=== PATIENT | female | born 1990 | race Caucasian/White ===

== ENCOUNTER 2016-10-08 17:53 | Emergency (ER) | payer OTHER ==
[~2016-10-08] VITALS: Ht 154.9 cm; Wt 129.8 kg
[~2016-10-08 17:53] MED LIST: ENDOCET 5-3251 EACH PO; Motrin PO; NO MEDICATIONS
[2016-10-08 21:11] VITALS: BP 132/81
== END 2016-10-08 21:11 | disposition home or self-care (01) ==
LOC: EME 17:53
DX: K59.00 Constipation, unspecified (principal); R10.9 Unspecified abdominal pain
CPT/HCPCS: 74020